=== PATIENT | female | born 1995 | race Caucasian/White ===

== ENCOUNTER 2021-03-26 11:46 | Emergency (ER) | payer OTHER ==
[2021-03-26 11:53] VITALS: BMI 28.6
[2021-03-26] MEDS ORDERED: SODIUM CHLORIDE 0.9% 500 ML INFUS.BAG IV ONE (12:30)
[2021-03-26] MEDS ORDERED: FAMOTIDINE 20 MG/50 ML IVPB 20 MG/50 ML MG IVPB ONE ×2 (12:30→13:25)
[2021-03-26 13:41] LABS: BASO % 0.3 % (0-2.0); EOS % 1.3 % (0-4.5); HEMATOCRIT 37.9 % (32.4-45.2); HEMOGLOBIN 13.1 GM/dL (10.7-15.3); LYMPH % 18.6 % (8-40); MCH 30.5 pg (25.7-33.7); MCHC 34.5 g/dl (32.0-36.0); MEAN CELL VOLUME 88.4 fl (80-96); MEAN PLT VOLUME 11.4 fl (7.5-11.1); NEUT % 73.8 % (42.8-82.8); PLATELET COUNT 166 K/MM3 (134-434); RBC 4.29 M/mm3 (3.60-5.2); RDW 13.4 % (11.6-15.6); WHITE BLOOD COUNT 8.1 K/mm3 (4.0-10.0)
[2021-03-26 14:04] LABS: CALCIUM 9.3 mg/dL (8.5-10.1)
[2021-03-26 14:05] LABS: ALBUMIN 3.8 g/dl (3.4-5.0); BLOOD UREA NITROGEN 5.4 mg/dL (7-18)
[2021-03-26 14:07] LABS: CREATININE 0.4 mg/dL (0.55-1.3)
[2021-03-26 14:09] LABS: BILIRUBIN,TOTAL 0.4 mg/dL (0.2-1); TOT PROT 6.7 g/dl (6.4-8.2)
[2021-03-26 15:13] VITALS: PULSE 85
[2021-03-26 15:14] VITALS: BP 119/72; TEMP 98.7
== END 2021-03-26 16:47 | disposition home or self-care (01) ==
LOC: JER 11:46
PROC: 3E033NZ Introduction of Analgesics, Hypnotics, Sedatives into Peripheral Vein, Percutaneous Approach (ICD-10-PCS; principal; 2021-03-26)
DX: O26.611 Liver and biliary tract disorders in pregnancy, first trimester (principal); Z3A.10 10 weeks gestation of pregnancy
CPT/HCPCS: 36415; 76705-TC; 76817-TC; 80053; 83690; 85025; 99285-25

== ENCOUNTER 2021-10-16 11:21 | Inpatient (IN) | payer OTHER ==
[2021-10-16] MEDS ORDERED: LACTATED RINGERS SOLUTION 1,000 ML IV ONE (11:45)
[2021-10-16] MEDS ORDERED: BUTORPHANOL TARTRATE 1 MG/ML VIAL IVPB PRN (23:38)
[2021-10-16] MEDS: ELECTROLYTE-148 SOLN 1,000 ML IV SCH (23:45)
[2021-10-17 00:44] LABS: BASO % 0.2 % (0-2.0); EOS % 0.6 % (0-4.5); HEMATOCRIT 39.9 % (32.4-45.2); HEMOGLOBIN 13.8 GM/dL (10.7-15.3); LYMPH % 21.5 % (8-40); MCH 30.9 pg (25.7-33.7); MCHC 34.7 g/dl (32.0-36.0); MEAN CELL VOLUME 89.3 fl (80-96); MEAN PLT VOLUME 12.6 fl (7.5-11.1); MONO % 5.6 % (3.8-10.2); NEUT % 72.1 % (42.8-82.8); PLATELET COUNT 105 10^3/uL (134-434); RBC 4.46 M/mm3 (3.60-5.2); RDW 13.8 % (11.6-15.6); WHITE BLOOD COUNT 8.9 K/mm3 (4.0-10.0)
[2021-10-17 01:01] LABS: INR 0.8 (0.83-1.09); PROTHROMBIN TIME (PATIENT) 9.3 SEC (9.7-13.0)
[2021-10-17 01:04] VITALS: BMI 31.5
[2021-10-17 01:04] LABS: ACTIVATED PTT 27.8 SECONDS (25.2-36.5)
[2021-10-17 01:06] LABS: CALCIUM 8.8 mg/dL (8.5-10.1)
[2021-10-17 01:07] LABS: BLOOD UREA NITROGEN 13.1 mg/dL (7-18)
[2021-10-17 01:10] LABS: CREATININE 0.8 mg/dL (0.55-1.3)
[2021-10-17] MEDS ORDERED: LABETALOL HCL 200 MG TABLET (FP) PO ONE ×2 (02:20→05:24)
[2021-10-17] MEDS: LABETALOL HCL 200 MG TABLET (FP) PO PRN ×2 (02:30→13:45)
[2021-10-17] MEDS ORDERED: PROMETHAZINE HCL 25 MG/1 ML VIAL IVPUSH ONE (05:22)
[2021-10-17] MEDS ORDERED: ELECTROLYTE-148 SOLN 1,000 ML IV SCH (05:30)
[2021-10-17] MEDS ORDERED: NALOXONE HCL 0.4 MG/ML VIAL IVPUSH PRN (06:15)
[2021-10-17] MEDS ORDERED: FENTANYL/BUPIVACAINE/NS/PF - PCEA - 50 ML DISP.SYRIN EP SCH (06:15)
[2021-10-17] MEDS: FENTANYL/BUPIVACAINE/NS/PF - PCEA - 50 ML DISP.SYRIN EP SCH ×3 (07:39→14:45)
[2021-10-17] MEDS: ELECTROLYTE-148 SOLN 1,000 ML IV SCH ×2 (08:04→12:56)
[2021-10-17 08:17] LABS: RETICULOCYTES 1.45 % (0.5-1.5)
[2021-10-17 08:33] LABS: URIC ACID 7.3 mg/dL (2.6-7.2)
[2021-10-17 08:48] LABS: HIV INTERPRETATION NEGATIVE (NEGATIVE)
[2021-10-17] MEDS ORDERED: OXYTOCIN 30 UNITS in 0.9% NS 30 UNIT/500 ML INFUS.BAG IVPB SCH (09:00)
[2021-10-17] MEDS ORDERED: BUPIVACAINE HCL/PF 0.25% (2.5MG/ML) 10 ML VIAL ONE (12:06)
[2021-10-17] MEDS ORDERED: LABETALOL HCL 200 MG TABLET (FP) ONE (13:46)
[2021-10-17] MEDS ORDERED: CITRIC ACID/SODIUM CITRATE 30 ML UNIT-DOSE CUP PO ONE (16:36)
[2021-10-17] MEDS ORDERED: LIDOCAINE HCL/PF 2% SDV 5ML VIAL ONE (16:48)
[2021-10-17] MEDS ORDERED: LIDOCAINE 1%/EPI 1:100000 (20 ML MULTI DOSE VIAL) ONE (16:48)
[2021-10-17] MEDS ORDERED: SODIUM BICARBONATE 8.4% 50 MEQ/50 ML VIAL ONE (16:48)
[2021-10-17] MEDS ORDERED: OXYTOCIN 20 UNITS in 0.9% NS 20 UNIT/1,000 ML INFUS.BAG IV ONE (17:03)
[2021-10-17] MEDS ORDERED: ePHEDrine SULFATE 50 MG/1 ML AMPULE ONE (17:39)
[2021-10-17] MEDS ORDERED: morphine SULFATE/PF 1 MG/2 ML (2cc Syringe - QUVA) ONE (17:39)
[2021-10-17] MEDS ORDERED: ceFAZolin SODIUM 1 GM VIAL ONE (17:55)
[2021-10-17] MEDS ORDERED: MIDAZOLAM HCL 2 MG/2 ML SINGLE DOSE VIAL ONE (18:01)
[2021-10-17] MEDS ORDERED: PROPOFOL 20 ML ONE ×2 (18:16→18:40)
[2021-10-17] MEDS ORDERED: ONDANSETRON 4 MG/2 ML VIAL ONE (18:24)
[2021-10-17] MEDS ORDERED: LIDOCAINE HCL 1% PRESERVATIVE FREE - 30ML VIAL ONE (18:37)
[2021-10-17] MEDS ORDERED: TRANEXAMIC ACID 1000 MG/10 ML VIAL ONE (18:44)
[2021-10-17] MEDS ORDERED: ONDANSETRON 4 MG/2 ML VIAL IVPUSH PRN (19:17)
[2021-10-17] MEDS ORDERED: ACETAMINOPHEN 325 MG TABLET (FP) PO PRN (19:17)
[2021-10-17] MEDS ORDERED: ACETAMINOPHEN 1000 MG/100 ML VIAL IVPB PRN (20:23)
[2021-10-17] MEDS ORDERED: ONDANSETRON 4 MG/2 ML VIAL IVPB PRN (20:23)
[2021-10-17] MEDS ORDERED: SENNOSIDES/DOCUSATE COMBO (SENNA PLUS) TABLET (UD) PO PRN (20:23)
[2021-10-17] MEDS ORDERED: IBUPROFEN 800 MG/8 ML IJ IVPB PRN (20:23)
[2021-10-17] MEDS ORDERED: oxyCODONE HCL 5 MG TABLET PO PRN (20:23)
[2021-10-17] MEDS ORDERED: METHYLERGONOVINE MALEATE 0.2 MG TABLET (FP) PO PRN (20:23)
[2021-10-17] MEDS ORDERED: OXYTOCIN 20 UNITS in 0.9% NS 20 UNIT/1,000 ML INFUS.BAG IV SCH (20:30)
[2021-10-18] MEDS: CEFAZOLIN 2 GM in DEXTROSE 5%-WATER 100 ML IVPB SCH ×3 (01:30→18:15)
[2021-10-18 08:43] LABS: BASO % 0.2 % (0-2.0); EOS % 0.1 % (0-4.5); HEMATOCRIT 19.6 % (32.4-45.2); LYMPH % 20.7 % (8-40); MCH 30.7 pg (25.7-33.7); MCHC 33.5 g/dl (32.0-36.0); MEAN CELL VOLUME 91.7 fl (80-96); MEAN PLT VOLUME 12.7 fl (7.5-11.1); MONO % 7.1 % (3.8-10.2); NEUT % 71.9 % (42.8-82.8); PLATELET COUNT 107 10^3/uL (134-434); RBC 2.13 M/mm3 (3.60-5.2); RDW 14.1 % (11.6-15.6); WHITE BLOOD COUNT 14.9 K/mm3 (4.0-10.0)
[2021-10-18 08:51] LABS: HEMOGLOBIN 6.5 GM/dL (10.7-15.3)
[2021-10-18] MEDS: ACETAMINOPHEN 325 MG TABLET (FP) PO PRN (12:53)
[2021-10-18] MEDS: SIMETHICONE 80 MG TAB.CHEW (FP) PO PRN (12:54)
[2021-10-18 14:27] LABS: EPI CELLS 2 /uL (0-25.1); HYALINE CASTS 2 /uL (0-3.1); URINE APPEARANCE CLEAR; URINE BACTERIA 11 /uL (0-1359); URINE BILIRUBIN NEGATIVE (NEGATIVE); URINE COLOR YELLOW; URINE GLUCOSE (UA) NEGATIVE (NEGATIVE); URINE KETONE NEGATIVE (NEGATIVE); URINE LEUK ESTERASE NEGATIVE (NEGATIVE); URINE NITRITE NEGATIVE (NEGATIVE); URINE PROTEIN NEGATIVE (NEGATIVE); URINE RBC 20 /uL (0-23.9); URINE UROBILINOGEN 0.2 mg/dL (0.2-1.0); URINE WBC 9 /uL (0-25.8)
[2021-10-18 16:19] LABS: BASO % 0.2 % (0-2.0); EOS % 0.2 % (0-4.5); HEMATOCRIT 19.2 % (32.4-45.2); LYMPH % 11.5 % (8-40); MCH 30.3 pg (25.7-33.7); MCHC 33.3 g/dl (32.0-36.0); MEAN PLT VOLUME 12.3 fl (7.5-11.1); NEUT % 81.1 % (42.8-82.8); PLATELET COUNT 122 10^3/uL (134-434); RBC 2.11 M/mm3 (3.60-5.2); RDW 14.2 % (11.6-15.6); WHITE BLOOD COUNT 16.4 K/mm3 (4.0-10.0)
[2021-10-18 16:42] LABS: CALCIUM 7.6 mg/dL (8.5-10.1)
[2021-10-18 16:43] LABS: ALBUMIN 1.4 g/dl (3.4-5.0); BLOOD UREA NITROGEN 19.9 mg/dL (7-18)
[2021-10-18 16:46] LABS: CREATININE 1.1 mg/dL (0.55-1.3)
[2021-10-18 16:47] LABS: BILIRUBIN,TOTAL 0.6 mg/dL (0.2-1); HEMOGLOBIN 6.4 GM/dL (10.7-15.3); TOT PROT 4.2 g/dl (6.4-8.2)
[2021-10-18] MEDS ORDERED: CEFAZOLIN 1 GM/D5W 1 GM/50 ML BAG IVPB SCH (18:30)
[2021-10-18] MEDS ORDERED: BISACODYL 10 MG SUPP.RECT RC PRN (20:24)
[2021-10-18] MEDS: LABETALOL HCL 200 MG TABLET (FP) PO PRN (22:32)
[2021-10-19] MEDS: SIMETHICONE 80 MG TAB.CHEW (FP) PO PRN (00:14)
[2021-10-19] MEDS: ACETAMINOPHEN 325 MG TABLET (FP) PO PRN (00:14)
[2021-10-19 09:37] LABS: POC NITRAZINE POS
[2021-10-19] MEDS: LABETALOL HCL 200 MG TABLET (FP) PO PRN (14:36)
[2021-10-19 15:03] LABS: BASO % 0.2 % (0-2.0); EOS % 0.7 % (0-4.5); HEMATOCRIT 25.1 % (32.4-45.2); HEMOGLOBIN 8.5 GM/dL (10.7-15.3); LYMPH % 11.8 % (8-40); MCH 28.8 pg (25.7-33.7); MCHC 33.8 g/dl (32.0-36.0); MEAN CELL VOLUME 85.4 fl (80-96); MONO % 5.9 % (3.8-10.2); NEUT % 81.4 % (42.8-82.8); PLATELET COUNT 128 10^3/uL (134-434); RBC 2.93 M/mm3 (3.60-5.2); RDW 18.7 % (11.6-15.6); WHITE BLOOD COUNT 15.5 K/mm3 (4.0-10.0)
[2021-10-19] MEDS: FENTANYL/BUPIVACAINE/NS/PF - PCEA - 50 ML DISP.SYRIN EP SCH (20:14)
[2021-10-20] MEDS: LABETALOL HCL 200 MG TABLET (FP) PO PRN (01:18)
[2021-10-20 08:56] LABS: BASO % 0.2 % (0-2.0); EOS % 2.1 % (0-4.5); HEMATOCRIT 25.1 % (32.4-45.2); HEMOGLOBIN 8.5 GM/dL (10.7-15.3); LYMPH % 16.8 % (8-40); MCH 29.3 pg (25.7-33.7); MCHC 33.8 g/dl (32.0-36.0); MEAN CELL VOLUME 86.5 fl (80-96); MEAN PLT VOLUME 10.6 fl (7.5-11.1); MONO % 5.4 % (3.8-10.2); NEUT % 75.5 % (42.8-82.8); PLATELET COUNT 195 10^3/uL (134-434); RDW 18.7 % (11.6-15.6); WHITE BLOOD COUNT 12.2 K/mm3 (4.0-10.0)
[2021-10-20] MEDS: AMOX TR/POT CLAV 875MG/125MG TABLETS (FP) PO SCH ×2 (09:50→17:22)
[2021-10-20] MEDS: IBUPROFEN 600 MG TABLET (FP) PO PRN ×2 (09:51→17:22)
[2021-10-21] MEDS: IBUPROFEN 600 MG TABLET (FP) PO PRN (04:02)
[2021-10-21] MEDS: SIMETHICONE 80 MG TAB.CHEW (FP) PO PRN (04:03)
[2021-10-21] MEDS: LABETALOL HCL 200 MG TABLET (FP) PO PRN (04:11)
[2021-10-21 04:14] VITALS: TEMP 98.2
[2021-10-21] MEDS: AMOX TR/POT CLAV 875MG/125MG TABLETS (FP) PO SCH (08:56)
[2021-10-21 12:27] VITALS: BP 119/74; PULSE 86
== END 2021-10-21 14:50 | disposition home or self-care (01) | DRG 788 ==
LOC: JDEL 11:21 → JLDR 22:45 → J3W 10-17 22:33
PROVIDERS: ADMIT Obstetrics & Gynecology; ATTEND Obstetrics & Gynecology
PROC: 10D00Z1 Extraction of Products of Conception, Low, Open Approach (ICD-10-PCS; principal; 2021-10-17)
DX: O48.0 Post-term pregnancy (principal); O99.214 Obesity complicating childbirth; O76 Abnormality in fetal heart rate and rhythm complicating labor and delivery; O62.1 Secondary uterine inertia; O64.0XX0 Obstructed labor due to incomplete rotation of fetal head, not applicable or unspecified; O90.81 Anemia of the puerperium; Z37.0 Single live birth; Z3A.40 40 weeks gestation of pregnancy
CPT/HCPCS: 36415; 36430; 59025; 80048; 80053; 81003; 82977; 83010; 83986-QW; 84450; 84460; 84550; 85025; 85032; 85045; 85610; 85730; 86780; 86850; 86900; 86901; 86922; 87389; 88307-TC; C9803; J0131; P9058; U0003; U0005